=== PATIENT | male | born 1955 | race Caucasian/White ===

== ENCOUNTER 2021-12-21 10:50 | Inpatient (IN) | payer OTHER, BC ==
[2021-12-21 11:17] VITALS: BMI 43.7
[2021-12-21] MEDS ORDERED: dilTIAZem HCL 50 MG/10 ML - 10 ML VIAL IVPUSH ONE (11:35)
[2021-12-21] MEDS ORDERED: dilTIAZem HCL 50 MG/10 ML - 10 ML VIAL ONE (11:40)
[2021-12-21 11:42] LABS: HEMOGLOBIN 14.9 G/dL (11.7-16.9); MCH 28.3 pg (25.7-33.7); MCHC 33.8 g/dl (32.0-35.9); MEAN CELL VOLUME 83.8 fl (80-96); MEAN PLT VOLUME 7.4 fl (7.5-11.1); PLATELET COUNT 270.7 10^3/uL (134-434); RBC 5.25 10^6/uL (4.00-5.60); RDW 15.9 % (11.9-15.9); WHITE BLOOD COUNT 9.4 10^3/uL (4.0-10.8)
[2021-12-21 11:48] LABS: INR 1.11 (0.83-1.09); PROTHROMBIN TIME (PATIENT) 12.8 SEC (9.7-13.0)
[2021-12-21 11:56] LABS: ALBUMIN 3.7 g/dl (3.4-5.0); BILIRUBIN,TOTAL 0.6 mg/dl (0.2-1); CALCIUM 9.2 mg/dl (8.5-10); TOT PROT 6.7 g/dl (6.4-8.2)
[2021-12-21] MEDS ORDERED: ENOXAPARIN NA (PORCINE) 120 MG/0.8 ML DISP.SYRIN SQ SCH ×2 (14:00→23:00)
[2021-12-21] MEDS ORDERED: ACETAMINOPHEN 325 MG TABLET (FP) PO PRN (14:56)
[2021-12-21] MEDS ORDERED: RAMIPRIL 10 MG PO SCH (15:45)
[2021-12-21] MEDS ORDERED: ENOXAPARIN NA (PORCINE) 60 MG/0.6 ML DISP.SYRIN SQ ONE (15:50)
[2021-12-21] MEDS: INSULIN SLIDING SCALE (NOVOLOG) 1 VIAL SQ SCH ×2 (16:07→21:43)
[2021-12-21] MEDS: dilTIAZem HCL 30 MG TABLET PO SCH (21:44)
[2021-12-21] MEDS: APIXABAN 5 MG TABLET PO SCH (22:00)
[2021-12-22 07:07] LABS: BASO % 0.6 % (0-2.0); HEMATOCRIT 41.8 % (35.4-49); HEMOGLOBIN 14.1 GM/dL (11.7-16.9); LYMPH % 25.7 % (8-40); MCH 28.1 pg (25.7-33.7); MCHC 33.7 g/dl (32.0-35.9); MEAN CELL VOLUME 83.5 fl (80-96); MEAN PLT VOLUME 8.6 fl (7.5-11.1); MONO % 7.3 % (3.8-10.2); NEUT % 63.4 % (42.8-82.8); PLATELET COUNT 248 10^3/uL (134-434); RBC 5.01 M/mm3 (4.00-5.60); RDW 14.8 % (11.9-15.9); WHITE BLOOD COUNT 8.5 K/mm3 (4.0-10.0)
[2021-12-22] MEDS ORDERED: RAMIPRIL 5 MG CAPSULE PO SCH (10:00)
[2021-12-22] MEDS: INSULIN SLIDING SCALE (NOVOLOG) 1 VIAL SQ SCH ×4 (10:00→21:34)
[2021-12-22] MEDS ORDERED: metoPROLOL SUCCINATE 25 MG TAB.SR.24H (FP) PO SCH (10:00)
[2021-12-22] MEDS: RAMIPRIL 5 MG CAPSULE PO SCH (10:12)
[2021-12-22] MEDS: APIXABAN 5 MG TABLET PO SCH ×2 (10:12→21:28)
[2021-12-22] MEDS: CHOLECALCIFEROL (VIT D3) 1,000 UNIT (25 MCG) TABLET PO SCH (10:13)
[2021-12-22] MEDS: dilTIAZem HCL 30 MG TABLET PO SCH ×3 (10:15→21:28)
[2021-12-22 10:57] LABS: BLOOD UREA NITROGEN 22.6 mg/dL (7-18); CALCIUM 8.7 mg/dL (8.5-10.1); CHLORIDE 107 mmol/L (98-107); CO2 28 mmol/L (21-32); CREATININE 0.8 mg/dL (0.55-1.3); GLUCOSE,RANDOM 122 mg/dL (74-106); SODIUM 141 mmol/L (136-145)
[2021-12-22] MEDS: SOTALOL HCL 80 MG TABLET (FP) PO SCH ×2 (15:03→21:28)
[2021-12-23] MEDS: dilTIAZem HCL 30 MG TABLET PO SCH ×3 (07:00→22:41)
[2021-12-23] MEDS: INSULIN SLIDING SCALE (NOVOLOG) 1 VIAL SQ SCH ×4 (07:00→22:45)
[2021-12-23] MEDS: RAMIPRIL 5 MG CAPSULE PO SCH (09:15)
[2021-12-23] MEDS: SOTALOL HCL 80 MG TABLET (FP) PO SCH ×2 (09:15→22:41)
[2021-12-23] MEDS: CHOLECALCIFEROL (VIT D3) 1,000 UNIT (25 MCG) TABLET PO SCH (09:15)
[2021-12-23] MEDS: APIXABAN 5 MG TABLET PO SCH ×2 (09:15→22:41)
[2021-12-23] MEDS ORDERED: BEBTELOVIMAB (EUA) 175 MG/2 ML VIAL IVPUSH ONE (17:00)
[2021-12-24] MEDS: dilTIAZem HCL 30 MG TABLET PO SCH (06:40)
[2021-12-24 06:47] VITALS: TEMP 97.7
[2021-12-24] MEDS: INSULIN SLIDING SCALE (NOVOLOG) 1 VIAL SQ SCH ×2 (07:18→11:36)
[2021-12-24 07:21] LABS: BASO % 0.6 % (0-2.0); EOS % 3.6 % (0-4.5); HEMATOCRIT 42.4 % (35.4-49); HEMOGLOBIN 13.8 GM/dL (11.7-16.9); LYMPH % 25.6 % (8-40); MCH 27.3 pg (25.7-33.7); MCHC 32.6 g/dl (32.0-35.9); MEAN CELL VOLUME 83.6 fl (80-96); MEAN PLT VOLUME 8.3 fl (7.5-11.1); NEUT % 62.2 % (42.8-82.8); PLATELET COUNT 242 10^3/uL (134-434); RBC 5.07 M/mm3 (4.00-5.60); RDW 14.5 % (11.9-15.9); WHITE BLOOD COUNT 8.4 K/mm3 (4.0-10.0)
[2021-12-24 07:31] LABS: CALCIUM 8.4 mg/dL (8.5-10.1)
[2021-12-24 07:32] LABS: ALBUMIN 3.3 g/dl (3.4-5.0); BLOOD UREA NITROGEN 21.2 mg/dL (7-18); CREATININE 0.8 mg/dL (0.55-1.3); MAGNESIUM 2.3 mg/dL (1.8-2.4)
[2021-12-24 07:33] LABS: BILIRUBIN,TOTAL 0.7 mg/dL (0.2-1); TOT PROT 6.3 g/dl (6.4-8.2)
[2021-12-24] MEDS: APIXABAN 5 MG TABLET PO SCH (10:22)
[2021-12-24] MEDS: CHOLECALCIFEROL (VIT D3) 1,000 UNIT (25 MCG) TABLET PO SCH (10:22)
[2021-12-24] MEDS: RAMIPRIL 5 MG CAPSULE PO SCH (10:22)
[2021-12-24] MEDS: SOTALOL HCL 80 MG TABLET (FP) PO SCH (10:22)
[2021-12-24 10:35] VITALS: BP 127/75; PULSE 82
== END 2021-12-24 15:07 | disposition home or self-care (01) | DRG 178 ==
LOC: FER 10:50 → FM/S 13:55 → J4W 12-22 14:34
PROVIDERS: ADMIT Internal Medicine; ATTEND Nurse Practitioner Acute Care
PROC: XW033H6 Introduction of Other New Technology Monoclonal Antibody into Peripheral Vein, Percutaneous Approach, New Technology Group 6 (ICD-10-PCS; principal; 2021-12-23)
DX: U07.1 COVID-19 (principal); Z68.41 Body mass index [BMI] 40.0-44.9, adult; I48.91 Unspecified atrial fibrillation; E66.01 Morbid (severe) obesity due to excess calories; I10 Essential (primary) hypertension; E11.9 Type 2 diabetes mellitus without complications; G47.33 Obstructive sleep apnea (adult) (pediatric)
CPT/HCPCS: 36415; 71045-TC-FY; 80048; 80053; 82962; 83036; 83735; 84443; 84484; 85025; 85379; 85610; 86140; 93005; 93010; 93306-TC; 99285-25; C9803-CS; Q0222; U0003; U0005

== ENCOUNTER 2022-02-01 04:24 | Day surgery (SDC) | payer OTHER, BC ==
[2022-02-01 13:22] VITALS: BMI 43.7
[2022-02-01] MEDS ORDERED: LIDOCAINE VISCOUS 2% ORAL/TOP 15 ML UNIT-DOSE CUP PO ONE (14:40)
[2022-02-01] MEDS ORDERED: LIDOCAINE VISCOUS 2% ORAL/TOP 15 ML UNIT-DOSE CUP ONE (14:50)
[2022-02-01 15:28] VITALS: TEMP 97.5
[2022-02-01 16:44] VITALS: PULSE 89
[2022-02-01 16:45] VITALS: BP 124/66; RESP 19
== END 2022-02-01 16:35 | disposition home or self-care (01) ==
LOC: JASU-ENDO 04:24
PROVIDERS: ATTEND Internal Medicine Cardiovascular Disease
PROC: 5A2204Z Restoration of Cardiac Rhythm, Single (ICD-10-PCS; 2022-02-01)
PROC: B246ZZ4 Ultrasonography of Right and Left Heart, Transesophageal (ICD-10-PCS; principal; 2022-02-01 13:30)
DX: I48.91 Unspecified atrial fibrillation (principal); I10 Essential (primary) hypertension; E11.9 Type 2 diabetes mellitus without complications
CPT/HCPCS: 82962; 92960; 93005; 93010; 93312; 93325

== ENCOUNTER 2022-05-13 10:20 | Emergency (ER) | payer OTHER, BC ==
[2022-05-13 10:31] VITALS: BP 141/76; PULSE 82; RESP 18; TEMP 97.8; BMI 43.6
[2022-05-13] MEDS ORDERED: ACETAMINOPHEN 500 MG TABLET (FP) PO ONE (10:36)
[2022-05-13] MEDS ORDERED: ACETAMINOPHEN 325 MG TABLET (FP) ONE (10:39)
== END 2022-05-13 11:39 | disposition home or self-care (01) ==
LOC: FER 10:20
DX: S49.91XA Unspecified injury of right shoulder and upper arm, initial encounter (principal); W01.0XXA Fall on same level from slipping, tripping and stumbling without subsequent striking against object, initial encounter
CPT/HCPCS: 73030-TC-RT-FY; 99283-25